=== PATIENT | male | born 1975 | race Caucasian/White ===

== ENCOUNTER 2023-07-17 14:58 | Emergency (ER) | payer BC ==
[2023-07-17] MEDS ORDERED: ACETAMINOPHEN ES 500 MG TABLET PO ONE (15:15)
[2023-07-17] MEDS ORDERED: ACETAMINOPHEN ES 500 MG TABLET ONE (15:16)
[2023-07-17] MEDS ORDERED: IBUPROFEN 600 MG TABLET PO ONE (17:15)
[2023-07-17] MEDS ORDERED: GUAI-671 PO (17:21)
[2023-07-17] MEDS ORDERED: OSEL75CA PO (17:21)
[2023-07-17] MEDS ORDERED: IBUPROFEN 600 MG TABLET ONE (17:22)
[2023-07-17 23:36] VITALS: BP 120/83; TEMP 98.9; O2SAT 96
== END 2023-07-17 23:15 | disposition home or self-care (01) ==
LOC: ER 14:58
DX: J10.1 Influenza due to other identified influenza virus with other respiratory manifestations (principal); Z20.822 Contact with and (suspected) exposure to COVID-19
CPT/HCPCS: 71045; A4606; A4663; A9150